=== PATIENT | female | born 1940 | race Asian ===

== ENCOUNTER 2019-01-06 10:25 | Emergency (ER) | payer OTHER ==
[~2019-01-06] VITALS: Ht 152.4 cm; Wt 57.6 kg
[2019-01-06 10:33] VITALS: Ht 152.4 cm; Wt 57.6 kg
[2019-01-06 11:44] VITALS: BP 137/80
== END 2019-01-06 11:44 | disposition home or self-care (01) ==
LOC: ED 10:25
DX: R19.7 Diarrhea, unspecified (principal); R10.9 Unspecified abdominal pain; I10 Essential (primary) hypertension; E78.00 Pure hypercholesterolemia, unspecified; Z98.890 Other specified postprocedural states